=== PATIENT | female | born 1950 | race Caucasian/White ===

== ENCOUNTER 2018-04-11 07:54 | Inpatient (IN) ==
[2018-04-11] MEDS ORDERED: Sodium Chlor 0.9% Inj 250 ML ONE (08:30)
[2018-04-11] MEDS ORDERED: Gelatin Size 100 Topical Foam ONE (09:17)
[2018-04-11] MEDS ORDERED: Betamethasone Sod Phos/Acetate Inj 30 MG/5 ML Vial IM ONE (09:17)
[2018-04-11] MEDS ORDERED: Bupivacaine/Epinephrine Inj 0.25% 50 ML Vial ONE (09:17)
[2018-04-11] MEDS ORDERED: Sodium Chlor 0.9% Inj 500 ML IV.CONT ONE (09:30)
[2018-04-11] MEDS ORDERED: Metoprolol Tartrate 25 MG Tablet PO ONE (09:30)
[2018-04-11] MEDS ORDERED: Chlorhexidine Gluconate 2% 1 Pack (2 Cloths) TOPICAL ONE (09:30)
[2018-04-11] MEDS ORDERED: Chlorhexidine 4% Topical 120 APPLIC/120 ML Bottle TOPICAL SCH (09:30)
[2018-04-11] MEDS ORDERED: Propofol Inj 500 MG/50 ML Vial ONE ×2 (09:31→14:29)
[2018-04-11] MEDS ORDERED: Artificial Tears Opth Oint 3.5 GM Tube ONE (09:34)
[2018-04-11] MEDS ORDERED: ceFAZolin 2 GM Premix Inj 2 GM/50 ML PIGGYBACK IV.SIG SCH (10:00)
[2018-04-11] MEDS ORDERED: Bupivacaine Liposomal PF 1.3% Inj 20 ML Vial ONE (10:13)
[2018-04-11] MEDS: Vancomycin Inj 1,000 MG in Sodium Chlor 0.9% Inj 250 ML IV.SIG SCH ×2 (11:50→16:12)
[2018-04-11] MEDS ORDERED: Bupivacaine Liposomal PF 1.3% Inj 20 ML Vial INFILTRATN ONE (14:35)
[2018-04-11] MEDS ORDERED: fentaNYL Citrate Inj 100 MCG/2 ML Ampul ONE (15:04)
[2018-04-11] MEDS ORDERED: Bisacodyl 10 MG Supp RECTAL PRN (15:24)
[2018-04-11] MEDS ORDERED: Acetaminophen 325 MG Tablet PO PRN (15:24)
[2018-04-11] MEDS ORDERED: HYDROmorphone PF Inj 1 MG/ML Ampul IV.PUSH PRN (15:24)
--- NOTE | 2018-04-11 15:24 | P.BOP ---
Date of procedure: 04/11/18 Procedure: 1. T12-L1 laminectomy, facetectomy and foraminotomy 2. T12-L1 instrumentation with bilateral pedicle screws for purposes of fusion 3. T12-L1 combined posterolateral and interbody fusion 4. Placement of autograft 5. Placement of allograft Implants: SpineWave Capsure Choice Spine Octane 7mm cage NovaBone NuCel Anesthesia: GETA Surgeon: Mabel Lay MD Estimated blood loss (mL): 300 Pathology: none sent Condition: stable Disposition: PACU
[2018-04-11] MEDS ORDERED: Post-op Orders (for Pharmacy) OTHER STA (15:35)
--- NOTE | 2018-04-11 15:50 | XR ---
EXAM DATE: 04/11/2018 3:35 PM EST AGE/SEX: 67 years / Female INDICATIONS: T12-L1 fusion. CLINICAL DATA: This is the patient's initial encounter. Patient reports that signs and symptoms have been present for 1 day and indicates a pain score of Nonresponsive. MEDICAL/SURGICAL HISTORY: Non-responsive. Non-responsive. COMPARISON: No prior exams available for comparison. FINDINGS: Posterior fusion hardware is noted at T12 and L1. CONCLUSION: Posterior fusion hardware noted at T12 and L1. Electronically signed by: Bijan Olea MD Board Certified Radiologist 04/11/2018 3:49 PM EST
--- NOTE | 2018-04-11 15:55 | P.OP ---
Date of procedure: 04/11/18 Procedure: 1. T12-L1 laminectomy, facetectomy and foraminotomy 2. T12-L1 instrumentation with bilateral pedicle screws for purposes of fusion 3. T12-L1 combined posterolateral and interbody fusion 4. Placement of autograft 5. Placement of allograft Implants: SpineWave Capsure 5.5mm pedicle screws Choice Spine Octane 7mm cage NovaBone macroform NuCel Autograft Anesthesia: GETA Surgeon: Mabel Lay MD Estimated blood loss (mL): 300 Pathology: none sent Operation and Findings: Indications for procedure: Patient is a 67-year-old female with progressive bilateral lower extremity weakness and balance disturbance with significant T12- L1 disc herniation with spinal stenosis and cord compression. Options of management were reviewed with the patient including continue nonoperative care versus operative intervention. Risks, benefits, alternatives were discussed. At this time the patient would like to proceed with the above-mentioned procedure. Description of procedure: Patient was brought back to the operating room where general anesthesia then ensued. Neuro monitoring leads were placed along with a Estrada catheter. Patient was then carefully positioned prone on the operating room table with all bony prominences well padded. Patient was then prepped and draped in standard sterile fashion. Preoperative antibiotics were given within 1 hour of incision. A timeout was performed to identify the correct patient, side, site and procedure to be performed. C-arm views were used to localize the site for incision and a central longitudinal incision was made directly overlying the T12-L1 level. Sharp dissection was made through skin and subcutaneous tissue. The fascia was cleared and incised directly over the spinous processes. Dissection was then carried out over the posterior aspect of the spine including the spinous process, lamina, pars, facet joints and transverse processes T12-L1. Attention was then turned towards pedicle screw placement. Pedicle screws were placed bilaterally at T12 and L1. Screws were placed under use of C-arm guidance. A housing and residence life director hole was created with a bur followed by a pedicle probe. A ball-tipped probe was used to confirm interosseous positioning along with C-arm. This was subsequently tapped, probed again and then appropriate length screws were placed. AP and lateral radiographs demonstrated the screws appeared appropriately positioned. The screws were then stimulated, all a threshold greater than 20. Attention was then turned towards decompression. A central decompression was initially carried out with the use of a high-speed bur, rongeur and Kerrisons at T12 and L1. The right lateral recess was then decompressed by undercutting the medial aspect of the superior articular facet and removing all hypertrophic capsular ligamentous tissue. At this time the left T12-L1 facet was removed with the use of a high-speed bur. This was completed with the use of Kerrisons with careful attention paid to protecting the decompressed exiting T12 nerve root on the left The thecal sac was protected with the use of a nerve root retractor but careful attention was paid to minimize any traction on the thecal sac and spinal cord. Hemostasis achieved with bipolar electrocautery and hemostatic agents. An annulotomy was performed at the T12-L1 disc space and the disc removed with the use of pituitaries and curettes. The disc space was then subsequently shaved up to a size 7. Again, disc material was removed with the use of curettes and pituitaries. This was performed until all cartilaginous material was removed from the disc space and there was healthy bleeding bone. A small tamp was placed ventral to the thecal sac and spinal cord to tamp down the disc herniation that was present at this level. At this time, the ventral thecal sac and spinal cord appeared free of any compression. The disc space was thoroughly irrigated. Local autograft mixed with NuCel and NovaBone was then placed and packed into the anterior aspect of the disc space. A cage was then filled on the back table with local autograft mixed with NuCel and NovaBone. This was then placed into the disc space an advanced to appropriate position on AP and lateral radiographs. At this time attention was turned ensuring all exiting nerve roots, bilateral T12 and L1 were free of any compression. Premeasured and precut rods were then placed between T12 and L1 screws bilaterally with set screws placed and final tightened. X-rays showed all hardware appeared to be well positioned on both AP and lateral radiographs. Copious irrigation was then performed. The transverse process at T12 and L1 were then decorticated with a bur and local autograft and allograft then placed in the posterolateral gutter. Duraseal was placed over the exposed dura. A deep drain was then placed through a lateral stab incision. Vancomycin powder was then placed into the wound. The fascia was then closed with #0 Vicryl suture. The subcutaneous tissue was closed with 2-0 Vicryl sutures and the skin closed with nylon. Sterile dressings were applied and patient was carefully transferred supine onto the hospital bed. Patient was then awoken from general anesthesia without complication. It should be noted that the patient remained hemodynamically stable throughout the entire procedure and that there were no adverse neuromonitoring changes.
[2018-04-11] MEDS ORDERED: *HYDROmorphone PF Inj 1 MG/ML Ampul PERIprocedural Use ONLY ONE (16:40)
[2018-04-11] MEDS ORDERED: ceFAZolin 1 GM Premix Inj 1 GM/50 ML PIGGYBACK IV.SIG ONE (17:01)
[2018-04-11] MEDS: ceFAZolin Inj 1 GM in Sodium Chlor 0.9% Inj 100 ML IV.SIG SCH (17:15)
[2018-04-11] MEDS ORDERED: IPRATROPIUM BROMIDE EACH NARE SCH (21:00)
[2018-04-11] MEDS: Multivitamin/Minerals Therapeutic Tablet PO SCH (22:03)
[2018-04-11] MEDS: Senna/Docusate Sodium 8.6/50 MG Tablet PO SCH (22:04)
[2018-04-12 01:10] VITALS: RESP 20; O2SAT 97
[2018-04-12] MEDS: ceFAZolin Inj 1 GM in Sodium Chlor 0.9% Inj 100 ML IV.SIG SCH ×2 (01:31→06:15)
[2018-04-12] MEDS ORDERED: Levothyroxine 50 MCG Tablet PO SCH (06:00)
--- NOTE | 2018-04-12 07:14 | P.PNOP ---
Subjective Interval history: Patient resting comfortably. States her pain is relatively well controlled. She is already been out of bed to the bathroom. States her leg numbness appears improved. Physical Exam Vital signs: Vital Signs 04/11/18 08:38 04/11/18 15:33 04/11/18 15:45 Temperature 100.1 F H 97.8 F Pulse Rate 78 92 H 110 H Respiratory Rate 20 16 16 Blood Pressure 178/86 H 139/65 113/80 Pulse Oximetry 97 100 98 04/11/18 16:00 04/11/18 16:15 04/11/18 16:30 Temperature Pulse Rate 90 88 88 Respiratory Rate 16 16 16 Blood Pressure 124/80 139/71 145/79 H Pulse Oximetry 99 97 96 04/11/18 16:45 04/11/18 17:00 04/11/18 20:27 Temperature 98.0 F Pulse Rate 90 96 H 104 H Respiratory Rate 16 16 18 Blood Pressure 141/73 H 105/64 94/55 L Pulse Oximetry 96 96 90 L 04/12/18 01:09 04/12/18 04:38 Temperature 98.9 F 97.8 F Pulse Rate 94 H 85 Respiratory Rate 20 20 Blood Pressure 110/56 L 112/68 Pulse Oximetry 97 97 Intake & Output 04/11/18 04/12/18 04/12/18 18:59 06:59 18:59 Intake Total 2200 / 2200 200 / 200 Output Total 750 / 750 60 / 60 Balance 1450 / 1450 140 / 140 Weight 85.8 kg 88.2 kg Intake: IV 1700 / 1700 200 / 200 LR 1000 mL Inj 1,000 ML @ 30 1000 / 1000 mls/hr IV.CONT .Q24H ONE Rx#: [id number] Vancomycin Inj 1,000 MG In NS 500 / 500 Inj 250 ML @ 250 mls/hr IV.SIG SPENT GRAIN DRYER GIOVANNY Rx#:[id number] Ancef 1 GM Premix Inj 1 gm In 50 / 50 50 ml @ 0 mls/hr IV.SIG .STK- MED ONE Rx#:[id number] Ancef 2 GM Premix Inj 2 gm In 50 / 50 50 ml @ 100 mls/hr IV.SIG SPENT GRAIN DRYER GIOVANNY Rx#:[id number] Ancef Inj 1 GM In NS Inj 100 ML 100 / 100 200 / 200 @ 200 mls/hr IV.SIG Q6H GIOVANNY Rx #:[id number] Other 500 / 500 Output: Estimated Blood Loss 300 / 300 Urine Amount (Catheter) 450 / 450 Indwelling Urethral Catheter 450 / 450 Wound Drainage 60 / 60 # 1 Lower Back Hemovac 60 / 60 Other: Other Intake Source Saline Solution # Voids 2 Weight On Admission 85.8 kg Narrative: Awake, alert, no acute distress Dressing in place without significant drainage. Hemovac remains in place. Bilateral lower extremities: 5 out of 5 strength throughout quadriceps, hamstrings, tib ant and gastrocsoleus. Negative Homans. Brisk cap refill - Urinary Catheter Management Indwelling Urethral Catheter Cath placed during this visit: yes, but has since been removed by the nurse Reason for continuing: Decision to DC catheter Insertion date: 04/11/18 Insertion time: 11:00 Removal date: 04/11/18 Removal time: 17:17 Results - Labs Laboratory Results - last 24 hr 04/11/18 09:36 Blood Type A Positive Blood Type Recheck Required Antibody Screen Negative - Imaging Impressions Thoracolumbar Spine 04/11/18 00:00 CONCLUSION: Posterior fusion hardware noted at T12 and L1. Assessment and Plan - Assessment and Plan 67-year-old female, postop day 1 status post T12-L1 posterior decompression with instrumented fusion, doing well 1. Tall weave brace for when patient is out of bed. Brace should not be on when patient is in bed. 2. PT for mobilization 3. DVT prophylaxis with Teds and SCDs. No chemical anticoagulation given recent spine surgery 4. Hemovac to be removed today. Dressing may remain in place for a total of 5 days from surgery. When drain is removed, a small piece of gauze and Tegaderm should be placed over the site. 5. Morning labs pending. Will follow. 6. Plan for discharge later home today provided morning labs are acceptable. Patient will require home health therapy for help with mobilization.
--- NOTE | 2018-04-12 07:19 | P.DCO ---
- Physical Therapy S/P Spinal Fusion: Gait training with walker, No twisting of torso, No bending - Nursing RN: 3 days/week x 2 weeks Nursing: Dressing changes Dressing changes: Daily dressing change, Gauze, Coverderm/Primapore - Certification Need for Home Health services: I have seen patient Pearl Suarez on 04/12/18. My clinical findings support the need for the requested home health care services because: Need for Home Health Services: Deconditioned with increased weakness, High risk of falls Homebound Certification: I certify that my clinical findings support that this patient is homebound because: Homebound Certification: Unsteady gait/balance
[2018-04-12 08:12] VITALS: BP 129/60; PULSE 91; TEMP 99.1
[2018-04-12] MEDS ORDERED: Escitalopram 10 MG Tablet PO SCH (09:00)
[2018-04-12] MEDS ORDERED: Lisinopril 5 MG Tablet PO SCH (09:00)
[2018-04-12] MEDS: Lactobacillus Acidophilus/L. Spores Tablet PO SCH ×2 (09:23→13:36)
[2018-04-12] MEDS: Senna/Docusate Sodium 8.6/50 MG Tablet PO SCH (09:24)
[2018-04-12] MEDS: Multivitamin/Minerals Therapeutic Tablet PO SCH (09:25)
--- NOTE | 2018-04-12 23:22 | ECG ---
Date Performed: 04/11/2018 Time Performed: 08:32:03 PTAGE: 67 years EKG: Sinus rhythm WITH SHORT [place] INTERVAL BORDERLINE ECG NO PREVIOUS TRACING DOCTOR: Cain Levy Interpretating Date/Time 04/12/2018 23:20:56
== END 2018-04-12 14:06 | disposition home health service (06) | DRG 454 ==
LOC: HSDI 07:54 → N05 17:37
PROVIDERS: ADMIT Orthopaedic Surgery Orthopaedic Surgery of the Spine; ATTEND Orthopaedic Surgery Orthopaedic Surgery of the Spine
CPT/HCPCS: 72070; 76000; 85018; 86850; 86900; 86901; 93005; 94150; 97162; C1713; C9290; J0690; J0702; J1170; J1580; J2250; J2704; J3010; J3370; J7050; J7120; K0636; L0627